=== PATIENT | female | born 1995 | race Caucasian/White ===

== ENCOUNTER 2016-04-16 17:21 | Emergency (ER) | payer BC ==
[~2016-04-16] VITALS: Ht 177.8 cm; Wt 99.8 kg
[~2016-04-16 17:21] MED LIST: BUTALB-APAP-CA1 EACH PO; NAPROSYN-EC500 MG PO; NAPROSYN500 MG PO; PROTONIX40 MG PO; ULTRAM50 MG PO; ZOFRAN ODT4 MG PO
[2016-04-16 19:04] LABS: HEMATOCRIT 39.8 % (36.0-46.0); MCH 29.1 PG (29.0-34.0); MCHC 34.4 G/DL (30.0-36.0); MCV 84.7 FL (83-99); RBC DIS.WIDTH-CV 13.2 % (11.8-14.6); RBC DIS.WIDTH-SD 39.8 % (39-53); WHITE BLOOD COUNT 16.9 K/uL (4.1-10.2)
[2016-04-16 19:07] LABS: CHLORIDE 104 mEq/L (99-109); POTASSIUM 4.6 mEq/L (3.7-5.4); SODIUM 139 mEq/L (136-147)
[2016-04-16 19:09] LABS: GLUCOSE 107 mg/dL (70-99)
[2016-04-16 19:11] LABS: ANION GAP 12 MEQ/L (2-14); TOTAL BILIRUBIN 0.4 mg/dL (0.0-1.0)
[2016-04-16 19:13] LABS: ALKALINE PHOSPHATASE 102 IU/L (3-129); GFR ESTIMATE (CALCULATED) > 59 mL/min/
[2016-04-16 19:14] LABS: UREA NITROGEN (BUN) 11 mg/dL (9-23)
[2016-04-16 19:16] LABS: LIPASE 21 U/L (1.0-51.0)
[2016-04-16 19:25] LABS: QUANTITATIVE HCG < 4.0 MIU/ML
[2016-04-16 19:33] LABS: MEAN PLAT.VOLUME 13.2 uM^3 (9.5-12.4); PLATELET COUNT 242 K/uL (156-360)
[2016-04-16] MEDS ORDERED: ZANTAC150 MG PO (20:06)
[2016-04-16] MEDS ORDERED: ZOFRAN4 MG PO (20:06)
[2016-04-16] MEDS ORDERED: PERCOCET 5/31 TABLET PO (20:06)
[2016-04-16 21:50] VITALS: BP 127/72
[2016-04-18] MEDS ORDERED: ZOFRAN ODT4 MG PO (11:45)
[2016-04-18] MEDS ORDERED: ZOFRAN4 MG PO (11:45)
[2016-04-18] MEDS ORDERED: DIGESTIVE EN1 TABLET PO (11:46)
== END 2016-04-16 21:51 | disposition home or self-care (01) ==
LOC: EME 17:21
DX: R10.13 Epigastric pain (principal); R11.10 Vomiting, unspecified
CPT/HCPCS: 80053; 81003; 83690; 84702; 85027; 99281; 99285; C9113; J1170; J2405; J2550; J7030

== ENCOUNTER 2016-05-15 09:04 | Day surgery (SDC) | payer BC ==
[~2016-05-15] VITALS: Ht 177.8 cm; Wt 96.8 kg
[~2016-05-15 09:04] MED LIST changes: +DIGESTIVE EN1 TABLET PO; +PERCOCET 5/31 TABLET PO; +ZANTAC150 MG PO; +ZOFRAN4 MG PO
[2016-05-15 09:49] VITALS: BP 127/54
[2016-05-15 10:08] LABS: ADD MIUA? YES; BILIRUBIN NEGATIVE; BLOOD NEGATIVE; COLOR YELLOW ((YELLOW)); GLUCOSE (STRIP) NEGATIVE; KETONES NEGATIVE; LEUKOCYTES TRACE; NITRITE NEGATIVE; PH, URINE 5.5 (5-8); PROTEIN (STRIP) NEGATIVE; UROBILINOGEN 0.2 MG/DL (0.2-1.0)
[2016-05-15 10:32] LABS: EPITHELIAL CELLS RARE; MUCUS 3+; RED BLOOD CELLS 0-5 /HPF (0-5)
[2016-05-15 10:33] LABS: BACTERIA 1+; CASTS NONE SEEN /LPF; CRYSTALS NONE SEEN
[2016-05-15] MEDS ORDERED: COLACE100 MG PO (13:48)
[2016-05-15] MEDS ORDERED: PERCOCET 5/31 TABLET PO (13:48)
[2016-05-15 15:25] VITALS: BP 123/80
[2016-05-15 17:15] VITALS: BP 127/87
== END 2016-05-15 17:30 | disposition home or self-care (01) ==
LOC: SDC 09:04
PROVIDERS: Surgery
PROC: 0FT44ZZ Resection of Gallbladder, Percutaneous Endoscopic Approach (ICD-10-PCS; principal; 2016-05-15)
DX: K80.10 Calculus of gallbladder with chronic cholecystitis without obstruction (principal); E73.9 Lactose intolerance, unspecified; Z82.5 Family history of asthma and other chronic lower respiratory diseases
CPT/HCPCS: 81003; 82150; 88304; J1100; J1170; J1335; J2250; J2405; J2710; J3010